=== PATIENT | male | born 1975 | race Native Hawaiian/Other Pacific Islander ===

== ENCOUNTER 2019-01-14 19:00 | Outpatient (CLI) | payer OTHER ==
[2019-01-14] MEDS ORDERED: NEURONTIN800 MG PO (19:27)
[2019-01-14] MEDS ORDERED: PRAZOSIN HCL5 MG PO (19:27)
[2019-01-14] MEDS ORDERED: BUSPIRONE30 MG PO (19:28)
[2019-01-14] MEDS ORDERED: FLUOXETINE40 MG PO (19:28)
[2019-01-14] MEDS ORDERED: LEVE500T5 PO (19:29)
[2019-01-14] MEDS ORDERED: CLONIDINE HYDR0.1 M1 PO (19:29)
[2019-01-14] MEDS ORDERED: HYDR50CA21 PO (19:30)
== END 2019-01-14 19:04 | disposition short-term general hospital (02) ==
LOC: AMB 19:00
DX: G40.89 Other seizures (principal)
CPT/HCPCS: A0425; A0427

== ENCOUNTER 2019-01-14 19:06 | Emergency (ER) | payer OTHER ==
[~2019-01-14] VITALS: Ht 175.3 cm; Wt 77.1 kg
[2019-01-14] MEDS ORDERED: NEURONTIN800 MG PO (19:27)
[2019-01-14] MEDS ORDERED: PRAZOSIN HCL5 MG PO (19:27)
[2019-01-14] MEDS ORDERED: FLUOXETINE40 MG PO (19:28)
[2019-01-14] MEDS ORDERED: BUSPIRONE30 MG PO (19:28)
[2019-01-14] MEDS ORDERED: LEVE500T5 PO (19:29)
[2019-01-14] MEDS ORDERED: CLONIDINE HYDR0.1 M1 PO (19:29)
[2019-01-14] MEDS ORDERED: HYDR50CA21 PO (19:30)
[2019-01-15 00:40] VITALS: BP 138/88; TEMP 98.2
== END 2019-01-15 00:40 | disposition home or self-care (01) ==
LOC: ED 19:16
DX: R53.81 Other malaise (principal); R53.1 Weakness; T73.0XXA Starvation, initial encounter
CPT/HCPCS: 99282